=== PATIENT | male | born 1995 | race Caucasian/White ===

== ENCOUNTER 2022-04-18 20:32 | Inpatient (IN) ==
[2022-04-18 21:43] LABS: Basophils # (auto) 0.02 K/uL (0-0.2); Basophils % (auto) 0.3 %; Eosinophils % (auto) 1.4 %; Hematocrit (blood only) 39.8 % (40.1-51.0); Hemoglobin 14.5 g/dl (14.0-18.0); Immature Granulocytes # (auto) 0.02 K/uL (0.00-0.02); Immature Granulocytes % (auto) 0.3 %; Lymphocytes # (auto) 1.33 K/uL (1.2-3.4); Lymphocytes % (auto) 19.3 %; Mean Corpuscular Hemoglobin 30.8 pg (25.0-34.0); Mean Corpuscular Hgb Conc 36.4 g/dL (32.0-36.0); Mean Corpuscular Volume 84.5 fL (80.0-100.0); Mean Platelet Volume 9.6 fL (9.4-12.4); Monocytes # (auto) 0.71 K/uL (0.24-0.82); Monocytes % (auto) 10.3 %; Neutrophils # (auto) 4.72 K/uL (1.4-6.5); Neutrophils % (auto) 68.4 %; Platelet Count 408 K/uL (130-400); RDW Coefficient of Variation 11.9 % (11.5-14.5); RDW Standard Deviation 35.9 fL (36.4-46.3); Red Blood Count 4.71 M/uL (4.63-6.08)
[2022-04-18 21:55] LABS: Acetaminophen < 3 ug/ml (10-30); Salicylate < 3.0 mg/dl (3.0-30)
[2022-04-18 21:58] LABS: Alanine Aminotransferase 78 U/L (7-52); Albumin Globulin Ratio 1.7 (0.9-2); Albumin Level 4.7 gm/dl (3.4-5.0); Alkaline Phosphatase 74 U/L (34-104); Anion Gap 10 (3-11); Aspartate Aminotransferase 42 U/L (13-39); BUN Creatinine Ratio 8.2 (10-20); Bilirubin,Total 1.1 mg/dl (0.2-1.0); Blood Urea Nitrogen 7 mg/dl (6-23); Calcium 9.5 mg/dl (8.5-10.1); Carbon Dioxide 26 mmol/L (21-32); Chloride 100 mmol/L (98-107); Est GFR (African American) 139.4 ml/min; Est GFR (Non-African American) 120.3 ml/min; Globulin 2.7 gm/dl (2.5-4.0); Glucose 95 mg/dl (70-99(Fasting)); Potassium 3.2 mmol/L (3.5-5.1); Sodium 136 mmol/L (136-145); Total Protein 7.4 gm/dl (6.0-8.3)
[2022-04-18 22:27] LABS: Appearance Urine Clear (Clear); Bilirubin Urine Negative (Negative); Blood Urine Negative (Negative); Color Urine Yellow; Glucose Urine UA Negative (Negative); Ketones Urine Negative (Negative); Leukocyte Esterase Urine Negative (Negative); Nitrite Urine Negative (Negative); Protein Urine Negative (Negative); Specific Gravity Urine 1.003 (1.000-1.030); Urobilinogen Urine Negative (Negative)
--- NOTE | 2022-04-18 22:44 | Emergency Department Note ---
Impression & Plan History of suicidal tendencies The case will be signed out to Dr. Nicholas ED Provider Note NAME: TIFFANIE QURESHI AGE: 26 SEX: M ARRIVES VIA: Walk-In INFORMANT: Patient ED PROVIDER(S): Peace Navarro DO CHIEF COMPLAINT: Depression PLAN: Disposition: The case will be signed out to Dr. Nicholas Condition: Fair MEDICAL DECISION MAKING: This is a 26-year-old male patient who presents to the emergency department with worsening depression. The patient asked police to shoot him with a gun as he was feeling suicidal. The patient was medically cleared while here in the emergency department. He was evaluated by the ED psychiatric behavioral health case manager as he was here on a 302. The patient is willing to admit himself voluntarily. A bed search will begin Triage Nursing notes reviewed and agree with them. Vital Signs: reviewed and unremarkable Differential diagnosis: Mood disorder, thought disorder, suicidal ideation Diagnostics interpreted by me: Laboratory studies: See below HPI: 26/M arrives for evaluation of suicidal ideation. The patient explains that he has become increasingly depressed over the past 2 weeks because of some family issues. He states that his sister just does not care. He describes having a falling out with her. He believes that his mother is the one who called police tonight. When police arrived, he asked them to shoot him. The police petitioned a 302. ROS: See above HPI for pertinent positives & negatives. A total of 10 systems reviewed and were otherwise negative. PAST MEDICAL HISTORY:Depression-the patient is not taking any medications. PAST SURGICAL HISTORY:See Below FAMILY HISTORY:See Below SOCIAL HISTORY:The patient lives with his family; he works at [employer]; he does smoke marijuana HOME MEDICATIONS:None ALLERGIES:None VITALS:See Below PHYSICAL EXAMINATION: HEENT: Head - normocephalic and atraumatic . Pupils are equal, round, and reactive to light. Extraocular eye muscles are intact, and sclera are anicteric. Nose - moist nasal mucosa without discharge. Mouth - moist buccal mucosa. Oropharynx is nonerythematous and there is no tonsillar exudate or edema noted. Neck: Supple; no cervical lymphadenopathy Heart: Regular rate and rhythm. There is a normal S1 and S2 with no murmurs, clicks, or gallops appreciated. Lungs: Clear to auscultation bilaterally with no wheezes, rales, or rhonchi. Abdomen: Soft, completely nontender, nondistended, with good bowel sounds. There are no palpable pulsatile masses or hepatosplenomegaly. There is no guarding, rigidity, or rebound noted. Extremities: No evidence of cyanosis, clubbing, or edema. There are easily palpable peripheral pulses. Skin: warm and dry with good turgor and no rashes. Psych: Patient has a flat affect. He does make good eye contact. He does admit to suicidal tendencies but no specific plan. He has no previous attempts. ED COURSE: Times/Reassessments: 2100: Patient was evaluated in room A8. A complete history and physical was performed. Laboratory studies were drawn as above. The patient was felt to be medically cleared. He was evaluated by the ED psychiatric behavioral health case manager. The case will be signed out to Dr. Nicholas as the bed search is underway for a voluntary admission Peace Navarro DO Past Med/Surg History Social History Smoking Status: Current every day smoker (chewing tobacco) Tobacco Type: Cigarettes Preferred Language: Mauritanian Communication Ability: Effective Rotary [employer]ill [employer] Operator Required: No Beliefs That Will Affect Care: None Feels Safe at Home: Yes Assistive Devices: None Allergies Allergies Allergy/AdvReac Type Severity Reaction Status Date / Time No Known Allergies Allergy Verified 04/19/22 10:24 Home Meds Home Medications Medication Instructions Recorded Confirmed benztropine 1 mg tablet 1 mg PO DAILY 04/18/22 04/19/22 haloperidol decanoate 100 mg/mL 100 mg IM MONTHLY 04/18/22 04/18/22 intramuscular solution trazodone 100 mg tablet 100 mg PO HS 04/18/22 04/18/22 Results & Data (ED) Vital Signs Vital Signs - 24 hr 04/18/22 20:32 Temperature 36.6 C Temperature Source Oral Pulse Rate 72 Respiratory Rate 18 Respiratory Effort / Characteristics Non-Labored Respiratory Depth Normal Blood Pressure 126/71 Blood Pressure Mean 89 Blood Pressure Position Lying Pulse Oximetry 99 Oxygen Delivery Method Room Air Sepsis Recent Fever Within 48 Hours No Sepsis New/Unexplained Change in Mental Status No Sepsis Action Taken by Nursing No Action Required Laboratory Data Result diagrams: 04/18/22 20:46 04/18/22 20:46 Lab Results 04/18/22 04/18/22 04/18/22 Range/Units 20:06 20:06 20:46 WBC 6.90 (4.8-10.8) K/ul RBC 4.71 (4.63-6.08) M/uL Hgb 14.5 (14.0-18.0) g/dl Hct 39.8 L (40.1-51.0) % MCV 84.5 (80.0-100.0) fL MCH 30.8 (25.0-34.0) pg MCHC 36.4 H (32.0-36.0) g/dL RDW Std Deviation 35.9 L (36.4-46.3) fL RDW Coeff of Lyle 11.9 (11.5-14.5) % Plt Count 408 H (130-400) K/uL MPV 9.6 (9.4-12.4) fL Immature Gran % (Auto) 0.3 % Neut % (Auto) 68.4 % Lymph % (Auto) 19.3 % Bonner % (Auto) 10.3 % Eos % (Auto) 1.4 % Baso % (Auto) 0.3 % Neut # (Auto) 4.72 (1.4-6.5) K/uL Lymph # (Auto) 1.33 (1.2-3.4) K/uL Bonner # (Auto) 0.71 (0.24-0.82) K/uL Eos # (Auto) 0.10 (0-0.50) K/uL Baso # (Auto) 0.02 (0-0.2) K/uL Immature Gran # (Auto) 0.02 (0.00-0.02) K/uL Sodium (136-145) mmol/L Potassium (3.5-5.1) mmol/L Chloride (98-107) mmol/L Carbon Dioxide (21-32) mmol/L Anion Gap (3-11) BUN (6-23) mg/dl Creatinine (0.6-1.4) mg/dl Est Cr Clr Drug Dosing Est GFR ( Amer) ml/min Est GFR (Non-Af Amer) ml/min BUN/Creatinine Ratio (10-20) Glucose (70-99(Fasting)) mg/dl Calcium (8.5-10.1) mg/dl Total Bilirubin (0.2-1.0) mg/dl AST (13-39) U/L ALT (7-52) U/L Alkaline Phosphatase (34-104) U/L Total Protein (6.0-8.3) gm/dl Albumin (3.4-5.0) gm/dl Globulin (2.5-4.0) gm/dl Albumin/Globulin Ratio (0.9-2) TSH (0.300-4.500) uIu/ml Urine Color Yellow Urine Appearance Clear (Clear) Urine pH 7.0 (4.5-7.5) Ur Specific Gentry 1.003 (1.000-1.030) Urine Protein Negative (Negative) Urine Glucose (UA) Negative (Negative) Urine Ketones Negative (Negative) Urine Blood Negative (Negative) Urine Nitrite Negative (Negative) Urine Bilirubin Negative (Negative) Urine Urobilinogen Negative (Negative) Ur Leukocyte Esterase Negative (Negative) Salicylates (3.0-30) mg/dl Urine Opiates Screen Neg (Neg) Ur Methadone, Qual Neg (Neg) Acetaminophen (10-30) ug/ml Urine Barbiturates Neg (Neg) Ur Phencyclidine (PCP) Neg (Neg) U Amphetamin/Meth Scrn Neg (Neg) MDMA (Ecstasy) Screen Neg (Neg) U Benzodiazepines Scrn Neg (Neg) Ur Cocaine Metabolite Neg (Neg) U Marijuana (THC) Screen Pos H (Neg) Ethyl Alcohol mg/dL (<10.0) mg/dl SARS-CoV-2, RNA, NAAT (NEGATIVE) 04/18/22 04/18/22 04/18/22 Range/Units 20:46 20:46 20:46 WBC (4.8-10.8) K/ul RBC (4.63-6.08) M/uL Hgb (14.0-18.0) g/dl Hct (40.1-51.0) % MCV (80.0-100.0) fL MCH (25.0-34.0) pg MCHC (32.0-36.0) g/dL RDW Std Deviation (36.4-46.3) fL RDW Coeff of Lyle (11.5-14.5) % Plt Count (130-400) K/uL MPV (9.4-12.4) fL Immature Gran % (Auto) % Neut % (Auto) % Lymph % (Auto) % Bonner % (Auto) % Eos % (Auto) % Baso % (Auto) % Neut # (Auto) (1.4-6.5) K/uL Lymph # (Auto) (1.2-3.4) K/uL Bonner # (Auto) (0.24-0.82) K/uL Eos # (Auto) (0-0.50) K/uL Baso # (Auto) (0-0.2) K/uL Immature Gran # (Auto) (0.00-0.02) K/uL Sodium 136 (136-145) mmol/L Potassium 3.2 L (3.5-5.1) mmol/L Chloride 100 (98-107) mmol/L Carbon Dioxide 26 (21-32) mmol/L Anion Gap 10 (3-11) BUN 7 (6-23) mg/dl Creatinine 0.85 (0.6-1.4) mg/dl Est Cr Clr Drug Dosing Not Reportable Est GFR ( Amer) 139.4 ml/min Est GFR (Non-Af Amer) 120.3 ml/min BUN/Creatinine Ratio 8.2 L (10-20) Glucose 95 (70-99(Fasting)) mg/dl Calcium 9.5 (8.5-10.1) mg/dl Total Bilirubin 1.1 H (0.2-1.0) mg/dl AST 42 H (13-39) U/L ALT 78 H (7-52) U/L Alkaline Phosphatase 74 (34-104) U/L Total Protein 7.4 (6.0-8.3) gm/dl Albumin 4.7 (3.4-5.0) gm/dl Globulin 2.7 (2.5-4.0) gm/dl Albumin/Globulin Ratio 1.7 (0.9-2) TSH 1.222 (0.300-4.500) uIu/ml Urine Color Urine Appearance (Clear) Urine pH (4.5-7.5) Ur Specific Gentry (1.000-1.030) Urine Protein (Negative) Urine Glucose (UA) (Negative) Urine Ketones (Negative) Urine Blood (Negative) Urine Nitrite (Negative) Urine Bilirubin (Negative) Urine Urobilinogen (Negative) Ur Leukocyte Esterase (Negative) Salicylates < 3.0 L (3.0-30) mg/dl Urine Opiates Screen (Neg) Ur Methadone, Qual (Neg) Acetaminophen < 3 L (10-30) ug/ml Urine Barbiturates (Neg) Ur Phencyclidine (PCP) (Neg) U Amphetamin/Meth Scrn (Neg) MDMA (Ecstasy) Screen (Neg) U Benzodiazepines Scrn (Neg) Ur Cocaine Metabolite (Neg) U Marijuana (THC) Screen (Neg) Ethyl Alcohol mg/dL (<10.0) mg/dl SARS-CoV-2, RNA, NAAT (NEGATIVE) 04/18/22 04/18/22 Range/Units 20:46 20:47 WBC (4.8-10.8) K/ul RBC (4.63-6.08) M/uL Hgb (14.0-18.0) g/dl Hct (40.1-51.0) % MCV (80.0-100.0) fL MCH (25.0-34.0) pg MCHC (32.0-36.0) g/dL RDW Std Deviation (36.4-46.3) fL RDW Coeff of Lyle (11.5-14.5) % Plt Count (130-400) K/uL MPV (9.4-12.4) fL Immature Gran % (Auto) % Neut % (Auto) % Lymph % (Auto) % Bonner % (Auto) % Eos % (Auto) % Baso % (Auto) % Neut # (Auto) (1.4-6.5) K/uL Lymph # (Auto) (1.2-3.4) K/uL Bonner # (Auto) (0.24-0.82) K/uL Eos # (Auto) (0-0.50) K/uL Baso # (Auto) (0-0.2) K/uL Immature Gran # (Auto) (0.00-0.02) K/uL Sodium (136-145) mmol/L Potassium (3.5-5.1) mmol/L Chloride (98-107) mmol/L Carbon Dioxide (21-32) mmol/L Anion Gap (3-11) BUN (6-23) mg/dl Creatinine (0.6-1.4) mg/dl Est Cr Clr Drug Dosing Est GFR ( Amer) ml/min Est GFR (Non-Af Amer) ml/min BUN/Creatinine Ratio (10-20) Glucose (70-99(Fasting)) mg/dl Calcium (8.5-10.1) mg/dl Total Bilirubin (0.2-1.0) mg/dl AST (13-39) U/L ALT (7-52) U/L Alkaline Phosphatase (34-104) U/L Total Protein (6.0-8.3) gm/dl Albumin (3.4-5.0) gm/dl Globulin (2.5-4.0) gm/dl Albumin/Globulin Ratio (0.9-2) TSH (0.300-4.500) uIu/ml Urine Color Urine Appearance (Clear) Urine pH (4.5-7.5) Ur Specific Gentry (1.000-1.030) Urine Protein (Negative) Urine Glucose (UA) (Negative) Urine Ketones (Negative) Urine Blood (Negative) Urine Nitrite (Negative) Urine Bilirubin (Negative) Urine Urobilinogen (Negative) Ur Leukocyte Esterase (Negative) Salicylates (3.0-30) mg/dl Urine Opiates Screen (Neg) Ur Methadone, Qual (Neg) Acetaminophen (10-30) ug/ml Urine Barbiturates (Neg) Ur Phencyclidine (PCP) (Neg) U Amphetamin/Meth Scrn (Neg) MDMA (Ecstasy) Screen (Neg) U Benzodiazepines Scrn (Neg) Ur Cocaine Metabolite (Neg) U Marijuana (THC) Screen (Neg) Ethyl Alcohol mg/dL < 10.0 (<10.0) mg/dl SARS-CoV-2, RNA, NAAT NEGATIVE (NEGATIVE) Administered Medications Olanzapine (Olanzapine 5 Mg Tablet) 5 mg PO HS PRN PRN Reason: Insomnia Stop: 05/19/22 20:59 Last Admin: 04/19/22 02:12 Dose: 5 mg Documented By: AD Discontinued Medications Trazodone HCl (Trazodone Hcl 50 Mg Tab) 100 mg PO NOW ONE Stop: 04/18/22 23:25 Last Admin: 04/18/22 23:37 Dose: 100 mg Documented By: GEORGE Discharge Plan Visit Data Chief Complaint: Mental Health Evaluation Stated Complaint: MENTAL HEALTH EVAL ED Provider: Brendon Nicholas Discharge Problem: History of suicidal tendencies Patient Disposition: Admitted As Inpatient Discharge Instructions Interventions: ED Discharge Assessment Last Done: 04/19/22 00:52
[2022-04-18 23:07] LABS: Amphetamines+Metham, Urine Neg (Neg); Barbiturates, Urine Neg (Neg); Benzodiazepine, Urine Neg (Neg); Cocaine, Urine Neg (Neg); MDMA (Ecstacy), Urine Neg (Neg); Methadone, Urine Neg (Neg); Opiate, Urine Neg (Neg); Phencyclidine, Urine Neg (Neg)
[2022-04-18] MEDS ORDERED: traZODone HCL 50 MG TAB PO ONE (23:24)
[2022-04-19] MEDS ORDERED: SODIUM CHLORIDE 0.65% NA SOLN 45 ML (OCEAN) PRN (00:25)
[2022-04-19] MEDS ORDERED: hydrOXYzine HCl 25 MG TAB PO PRN ×2 (00:25)
[2022-04-19] MEDS ORDERED: MAGNESIUM HYDROXIDE SUSP 30 ML UDC PO PRN (00:25)
[2022-04-19] MEDS ORDERED: ALUMINUM/MAGNESIUM SUSP 30 ML UDC PO PRN (00:25)
[2022-04-19] MEDS ORDERED: BISMUTH SUBSALICYLATE LIQD 236 ML PO PRN (00:25)
[2022-04-19] MEDS ORDERED: OLANZapine 5 MG TABLET PO PRN ×2 (00:32→10:44)
--- NOTE | 2022-04-19 01:58 | Emergency Department Note ---
ED Visit Note Patient was signed out to me at change of shift by Dr. Navarro, while on shift patient was admitted voluntarily to 3 S. for inpatient psychiatric care. 302 therefore was not upheld as the patient was agreeable for 201 admission. Patient was admitted in stable condition. .
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
[2022-04-19] MEDS: NICOTINE 21 MG/24 HR TDSY TD SCH (10:44)
[2022-04-19] MEDS: NICOTINE POLACRILEX 2 MG GUM MT PRN ×4 (10:58→20:02)
[2022-04-19] MEDS: BENZTROPINE MESYLATE 1 MG TAB PO SCH (12:52)
[2022-04-19] MEDS: ACETAMINOPHEN 325 MG TAB PO PRN (16:03)
[2022-04-19] MEDS: traZODone HCL 100 MG TAB PO SCH (21:13)
[2022-04-20] MEDS: BENZTROPINE MESYLATE 1 MG TAB PO SCH (08:31)
[2022-04-20] MEDS: NICOTINE 21 MG/24 HR TDSY TD SCH (08:32)
[2022-04-20] MEDS: NICOTINE POLACRILEX 2 MG GUM MT PRN ×5 (09:01→17:36)
--- NOTE | 2022-04-20 16:41 | Psychiatric Progress Note ---
Date of Service April 20, 2022 Impression / Recommendations Impression The patient is a 26 year old with a history of schizophrenia who was admitted for worsening depression, irritability with SI. Diagnostically consistent with MDD with marked irritability, given history of schizophrenia could be OCD component to chronic SI/intrusive thoughts but difficult to fully assess given his difficulty engaging with interview, significant externalizing and does sound like challenging home environment. His attempts to taper cannabis use may also be contributing to irritability. Unclear if any specific learning disabilities but presentation more consistent with ODD/depression with irritability at this point. The patient is deemed unstable and requires psychiatric hospitalization for diagnostic clarification, safety and stabilization, medication management and development of further coping skills. MNPR due to marked irritability and anger, unable to tolerate extended interactions with peers 04/20/22: Some reduction in irritability today, still with depression and anxiety. Reviewed [facility] records-no noted prior SSRI trials. Discussed medication treatment options in detail for mood including SSRIs. Discussed risks, benefits and alternatives. Patient would like to start and consented to sertraline for MDD. Reviewed side effects including but not limited to: GI, STUART, sexual side effects, and counseled on black box warning of potential for emergence of or increased SI and need to let staff know should this occur or should they feel unsafe. Also discussed importance of seeking emergency care following discharge if this side effect occurs in the future. (1) MDD (major depressive disorder), recurrent episode, severe: (2) Schizophrenia: (3) Suicidal ideations: Plan 04/20/22: Start sertraline 25mg qd. 04/19/22: The patient was admitted to the [facility] ([facility] mental health unit) on q15 min checks (behavioral with suicide precautions) for safety. The patient will participate in group, recreational, and milieu therapies and will be offered additional individual and family sessions as clinically appropriate. -Get records from [facility] to confirm if any prior antidepressant trials -Continue Cogentin and trazodone, will confirm when next dose is due for Haldol VINES -He agrees to referral for case management Inventory Assets Strengths: lives with family, willing to consider additional outpatient resources, employed Needs: safety and stabilization, medication adjustment, additional coping skills, increased outpatient services Suicide Risk Level Suicide Risk Level Comments: High-Moderate due to severe depression with SI with plan prior to admission but feels safe in the hospital, able to safety contract and agrees to let nursing/staff know should they develop plan, intent or feel unable to remain safe. Risk Factors Assessment Male: Yes : Yes Do You Have Access To A Gun?: No Mental Health Diagnoses: Yes Previous Attempt: No Family History of Suicide: No Previous Psychiatric Hospitalization: Yes Hopelessness: Yes Protective Factors Assessment Employed: Yes ([employer]) Interval History Identifying Information TIFFANIE QURESHI is a 26-year-old M who currently lives in [place] with his mother and her boyfriend, has a history of schizophrenia, and was admitted on 04/19/22 00:25 on a 201 voluntary commitment for worsening depression, agitation and SI with plan of by police. Chief Complaint "I'm ok but my mom won't milk pickup truck driver her phone to talk to me". Review of Systems Sleep Information Total Hours of Sleep: 5 Meal Information Percent Meal Consumed - Breakfast: 100 Percent Meal Consumed - Lunch: 100 Percent Meal Consumed - Dinner: 75 Nutrition Comment: left patient sleep due to late admission Subjective Subjective Patient was seen & assessed and interval progress reviewed with treatment team nursing and social work. Slightly less irritable today. States his mood is a "little calmer". He denies SI so far today. He's finding the groups helpful. Reviewed that I recieved his [facility] records and could find no history of a prior SSRI trial. He remains focused on his mom and themes of frustration with his family. Called his job to tell them he's here. Physical Exam Psychiatric Orientation: alert and oriented x 3 Apperance: appropriately dressed and appropriately groomed Eye Contact: good eye contact Motor Behavior: no abnormal motor movements Speech: normal rate/rhythm/volume of speech Affect: + depressed affect and + anxious affect Mood: + depressed mood and + anxious mood Thought Process: goal directed thought process and + concrete thought process Thought Content: reality based without delusions Suicidal Thoughts: denies suicidal plan and denies suicidal intent; + reports suicidal thoughts (chronic intermittent thoughts but denies any so far today) Homicidal Thoughts: denies homicidal thoughts Hallucinations: no auditory hallucinations and no visual hallucinations Cognition: recent memory grossly intact, remote memory grossly intact, attention grossly intact and language grossly intact Estimated Intelligence: consistent with education level Insight: + limited insight Judgement: + limited judgement Vital Signs (Past 24 Hours) Last Vital Signs Temp 36.4 C L 04/20/22 06:36 Pulse 75 04/20/22 06:38 Resp 16 04/20/22 06:36 BP 145/86 H 04/20/22 06:38 Pulse Ox 96 04/19/22 01:17 O2 Del Method 04/19/22 01:17 Results & Data ([facility]) Current Inpatient Medications Current Inpatient Medications: Current Inpatient Medications Acetaminophen (Acetaminophen 325 Mg Tab) 650 mg PO Q4H PRN PRN Reason: Headache or Minor Fever Stop: 05/19/22 00:24 Last Admin: 04/19/22 16:03 Dose: 650 mg Al Hydrox/Mg Hydrox/Simethicone (Aluminum/Magnesium Susp 30 Ml Udc) 30 ml PO Q4H PRN PRN Reason: GI Upset Stop: 05/19/22 00:24 Benztropine Mesylate (Benztropine Mesylate 1 Mg Tab) 1 mg PO DAILY [facility] Stop: 05/19/22 10:44 Last Admin: 04/20/22 08:31 Dose: 1 mg Bismuth Subsalicylate (Bismuth Subsalicylate Liqd 236 Ml) 15 ml PO PRN PRN PRN Reason: Loose Stool Stop: 05/19/22 00:24 Hydroxyzine HCl (Hydroxyzine Hcl 25 Mg Tab) 50 mg PO HSZ PRN PRN Reason: Insomnia Stop: 05/19/22 00:24 Hydroxyzine HCl (Hydroxyzine Hcl 25 Mg Tab) 25 mg PO Q4H PRN PRN Reason: Anxiety Stop: 05/19/22 00:24 Last Admin: 04/19/22 13:40 Dose: 25 mg Magnesium Hydroxide (Magnesium Hydroxide Susp 30 Ml Udc) 30 ml PO DAILY PRN PRN Reason: Constipation Stop: 05/19/22 00:24 Miscellaneous (Remove Nicoderm Patch) 1 each N/A DAILY@0859 [facility] Stop: 05/19/22 08:58 Last Admin: 04/20/22 08:32 Dose: Not Given Nicotine (Nicotine 21 Mg/24 Hr Tdsy) 21 mg TD QAM [facility] Stop: 05/19/22 08:59 Last Admin: 04/20/22 08:32 Dose: Not Given Nicotine Polacrilex (Nicotine Polacrilex 2 Mg Gum) 1 piece MT PRN PRN PRN Reason: Nicotine Withdrawal Stop: 05/19/22 00:24 Last Admin: 04/20/22 15:36 Dose: 1 piece Olanzapine (Olanzapine 5 Mg Tablet) 5 mg PO BID PRN PRN Reason: Agitation Stop: 05/19/22 00:31 Sodium Chloride (Sodium Chloride 0.65% Na Soln 45 Ml ([place])) 1 - 2 sprays NA PRN PRN PRN Reason: Nasal Dryness/Congestion Stop: 05/19/22 00:24 Trazodone HCl (Trazodone Hcl 100 Mg Tab) 100 mg PO HS [facility]AC[facility] Stop: 05/19/22 21:59 Last Admin: 04/19/22 21:13 Dose: 100 mg Mental Health & Subst Abuse Tx Psychiatrist Name of Psychiatrist: Calvin Lambert Psychiatrist's Date of Appointment with Psychiatrist: 05/03/22 Time of Appointment with Psychiatrist: 10:40am Psychiatric Appointment Comment: [id number], [place] [id number] Therapist Name of Therapist: Christiana Alexis Therapist's Date of Therapist Appointment: 04/28/22 Time of Therapist Appointment: 3:30 PM Therapy Appointment Comment: This is a televideo appointment. Material Handling Crew Supervisor Name of Material Handling Crew Supervisor: autumn Post Discharge Appointments Primary Care Physician Name Of Family Doctor: unknown
[2022-04-20] MEDS: ACETAMINOPHEN 325 MG TAB PO PRN (17:36)
[2022-04-20] MEDS: traZODone HCL 100 MG TAB PO SCH (21:18)
[2022-04-21 00:18] LABS: Marijuana Quant, GCMS Urine 88 ng/mL (<5)
[2022-04-21] MEDS: NICOTINE 21 MG/24 HR TDSY TD SCH (05:54)
[2022-04-21] MEDS: BENZTROPINE MESYLATE 1 MG TAB PO SCH (08:13)
[2022-04-21] MEDS: SERTRALINE HCL 50 MG TABLET PO SCH (08:13)
--- NOTE | 2022-04-21 08:57 | Psychiatric Progress Note ---
Date of Service April 21, 2022 Impression / Recommendations Impression The patient is a 26 year old with a history of schizophrenia who was admitted for worsening depression, irritability with SI. Diagnostically consistent with MDD with marked irritability, given history of schizophrenia could be OCD component to chronic SI/intrusive thoughts but difficult to fully assess given his difficulty engaging with interview, significant externalizing and does sound like challenging home environment. His attempts to taper cannabis use may also be contributing to irritability. Unclear if any specific learning disabilities but presentation more consistent with ODD/depression with irritability at this point. The patient is deemed unstable and requires psychiatric hospitalization for diagnostic clarification, safety and stabilization, medication management and development of further coping skills. MNPR due to marked irritability and anger, unable to tolerate extended interactions with peers 04/21/22: Depression and anxiety with periods of heightened irritability when communicating with family. Tolerating sertraline. Motivational interviewing regarding tobacco and cannabis use-some increased insight about this and role it plays in conflicts. (1) MDD (major depressive disorder), recurrent episode, severe: (2) Schizophrenia: (3) Suicidal ideations: Plan 04/21/22: Continue with medications and tx plan. Needs family meeting. 04/20/22: Start sertraline 25mg qd. 04/19/22: The patient was admitted to the [facility] ([facility] mental health unit) on q15 min checks (behavioral with suicide precautions) for safety. The patient will participate in group, recreational, and milieu therapies and will be offered additional individual and family sessions as clinically appropriate. -Get records from [facility] to confirm if any prior antidepressant trials -Continue Cogentin and trazodone, will confirm when next dose is due for Haldol VINES -He agrees to referral for case management Inventory Assets Strengths: lives with family, willing to consider additional outpatient resources, employed Needs: safety and stabilization, medication adjustment, additional coping skills, increased outpatient services Suicide Risk Level Suicide Risk Level: Moderate (q15 min suicide checks) Suicide Risk Level Comments: Moderate due to severe depression with SI with plan prior to admission but denies SI today, feels safe in the hospital, able to safety contract and agrees to let nursing/staff know should they develop plan, intent or feel unable to remain safe. Risk Factors Assessment Male: Yes : Yes Do You Have Access To A Gun?: No Mental Health Diagnoses: Yes Previous Attempt: No Family History of Suicide: No Previous Psychiatric Hospitalization: Yes Hopelessness: Yes Protective Factors Assessment Employed: Yes ([employer]) Interval History Identifying Information TIFFANIE QURESHI is a 26-year-old M who currently lives in [place] with his mother and her boyfriend, has a history of schizophrenia, and was admitted on 04/19/22 00:25 on a 201 voluntary commitment for worsening depression, agitation and SI with plan of by police. Chief Complaint "I'm ok". Review of Systems Sleep Information Total Hours of Sleep: 5 Meal Information Percent Meal Consumed - Breakfast: 100 Percent Meal Consumed - Lunch: 100 Percent Meal Consumed - Dinner: 100 Nutrition Comment: left patient sleep due to late admission Subjective Subjective Patient was seen & assessed and interval progress reviewed with treatment team nursing and social work. Up early and focused on coping skills. Got very angry on the phone with his mother shouting and cursing and became very angry requiring redirection from nursing. Today more insight into role of his substance in contributing to arguments at home with his family. States more hopefulness today. Denies SI. No side effects from sertraline so far. Physical Exam Psychiatric Orientation: alert and oriented x 3 Apperance: appropriately dressed and appropriately groomed Eye Contact: good eye contact Motor Behavior: no abnormal motor movements Speech: normal rate/rhythm/volume of speech Affect: + depressed affect Mood: + depressed mood Thought Process: goal directed thought process and + concrete thought process Thought Content: reality based without delusions Suicidal Thoughts: denies suicidal thoughts (chronic intermittent thoughts but denies any so far today) Homicidal Thoughts: denies homicidal thoughts Hallucinations: no auditory hallucinations and no visual hallucinations Cognition: recent memory grossly intact, remote memory grossly intact, attention grossly intact and language grossly intact Estimated Intelligence: consistent with education level Insight: + fair insight Judgement: + limited judgement Vital Signs (Past 24 Hours) Last Vital Signs Temp 35.6 C L 04/21/22 06:00 Pulse 62 04/21/22 06:05 Resp 16 04/21/22 06:00 BP 139/83 04/21/22 06:05 Pulse Ox 96 04/19/22 01:17 O2 Del Method 04/19/22 01:17 Results & Data ([facility]) Laboratory Results Laboratory Results - last 24 hr 04/18/22 20:06 U Marijuana THC Carboxy 88 H Drug Screen Comment SEE NOTE Current Inpatient Medications Current Inpatient Medications: Current Inpatient Medications Acetaminophen (Acetaminophen 325 Mg Tab) 650 mg PO Q4H PRN PRN Reason: Headache or Minor Fever Stop: 05/19/22 00:24 Last Admin: 04/20/22 17:36 Dose: 650 mg Al Hydrox/Mg Hydrox/Simethicone (Aluminum/Magnesium Susp 30 Ml Udc) 30 ml PO Q4H PRN PRN Reason: GI Upset Stop: 05/19/22 00:24 Benztropine Mesylate (Benztropine Mesylate 1 Mg Tab) 1 mg PO DAILY [facility] Stop: 05/19/22 10:44 Last Admin: 04/21/22 08:13 Dose: 1 mg Bismuth Subsalicylate (Bismuth Subsalicylate Liqd 236 Ml) 15 ml PO PRN PRN PRN Reason: Loose Stool Stop: 05/19/22 00:24 Hydroxyzine HCl (Hydroxyzine Hcl 25 Mg Tab) 50 mg PO HSZ PRN PRN Reason: Insomnia Stop: 05/19/22 00:24 Hydroxyzine HCl (Hydroxyzine Hcl 25 Mg Tab) 25 mg PO Q4H PRN PRN Reason: Anxiety Stop: 05/19/22 00:24 Last Admin: 04/19/22 13:40 Dose: 25 mg Magnesium Hydroxide (Magnesium Hydroxide Susp 30 Ml Udc) 30 ml PO DAILY PRN PRN Reason: Constipation Stop: 05/19/22 00:24 Miscellaneous (Remove Nicoderm Patch) 1 each N/A DAILY@0859 [facility] Stop: 05/19/22 08:58 Last Admin: 04/21/22 05:45 Dose: Not Given Nicotine (Nicotine 21 Mg/24 Hr Tdsy) 21 mg TD QAM [facility] Stop: 05/19/22 08:59 Last Admin: 04/21/22 05:54 Dose: 21 mg Nicotine Polacrilex (Nicotine Polacrilex 2 Mg Gum) 1 piece MT PRN PRN PRN Reason: Nicotine Withdrawal Stop: 05/19/22 00:24 Last Admin: 04/20/22 17:36 Dose: 1 piece Olanzapine (Olanzapine 5 Mg Tablet) 5 mg PO BID PRN PRN Reason: Agitation Stop: 05/19/22 00:31 Sertraline HCl (Sertraline Hcl 50 Mg Tablet) 25 mg PO QAM [facility] Stop: 05/21/22 08:59 Last Admin: 04/21/22 08:13 Dose: 25 mg Sodium Chloride (Sodium Chloride 0.65% Na Soln 45 Ml ([place])) 1 - 2 sprays NA PRN PRN PRN Reason: Nasal Dryness/Congestion Stop: 05/19/22 00:24 Trazodone HCl (Trazodone Hcl 100 Mg Tab) 100 mg PO HS [facility] Stop: 05/19/22 21:59 Last Admin: 04/20/22 21:18 Dose: 100 mg Mental Health & Subst Abuse Tx Psychiatrist Name of Psychiatrist: Calvin Lambert Psychiatrist's Date of Appointment with Psychiatrist: 05/03/22 Time of Appointment with Psychiatrist: 10:40am Psychiatric Appointment Comment: [id number], [place] [id number] Therapist Name of Therapist: Christiana Alexis Therapist's Date of Therapist Appointment: 04/28/22 Time of Therapist Appointment: 3:30 PM Therapy Appointment Comment: This is a televideo appointment. [employer] Set Up Technician Name of [employer] Set Up Technician: autumn Post Discharge Appointments Primary Care Physician Name Of Family Doctor: unknown
[2022-04-21] MEDS: NICOTINE POLACRILEX 2 MG GUM MT PRN (17:43)
[2022-04-21] MEDS: traZODone HCL 100 MG TAB PO SCH (21:18)
[2022-04-22] MEDS: SERTRALINE HCL 50 MG TABLET PO SCH (07:24)
[2022-04-22] MEDS: BENZTROPINE MESYLATE 1 MG TAB PO SCH (07:24)
[2022-04-22] MEDS: NICOTINE 21 MG/24 HR TDSY TD SCH (07:25)
[2022-04-22] MEDS ORDERED: SERTRALINE HCL 50 MG TABLET PO ONE (12:15)
--- NOTE | 2022-04-22 12:32 | Psychiatric Progress Note ---
Date of Service April 22, 2022 Impression / Recommendations Impression The patient is a 26 year old with a history of schizophrenia who was admitted for worsening depression, irritability with SI. Diagnostically consistent with MDD with marked irritability, given history of schizophrenia could be OCD component to chronic SI/intrusive thoughts but difficult to fully assess given his difficulty engaging with interview, significant externalizing and does sound like challenging home environment. His attempts to taper cannabis use may also be contributing to irritability. Unclear if any specific learning disabilities but presentation more consistent with ODD/depression with irritability at this point. The patient is deemed unstable and requires psychiatric hospitalization for diagnostic clarification, safety and stabilization, medication management and development of further coping skills. MNPR due to periods of irritability and anger 04/22/22: Mood is improving, still with anxiety. Family meeting to be held today. Consents to increase in sertraline and continues to tolerate without any side effects. Ongoing motivational interviewing regarding tobacco and cannabis use he plans to avoid use after discharge. (1) MDD (major depressive disorder), recurrent episode, severe: (2) Schizophrenia: (3) Suicidal ideations: Plan 04/22/22: Increase sertraline to 50mg qd. 04/21/22: Continue with medications and tx plan. Needs family meeting. 04/20/22: Start sertraline 25mg qd. 04/19/22: The patient was [facility] to the [facility] on q15 min checks (behavioral with suicide precautions) for safety. The patient will participate in group, recreational, and milieu therapies and will be offered additional individual and family sessions as clinically appropriate. -Get records from [facility] to confirm if any prior antidepressant trials -Continue Cogentin and trazodone, will confirm when next dose is due for Haldol VINES -He agrees to referral for case management Inventory Assets Strengths: lives with family, willing to consider additional outpatient resources, employed Needs: safety and stabilization, medication adjustment, additional coping skills, increased outpatient services Suicide Risk Level Suicide Risk Level: Moderate (q15 min suicide checks) Suicide Risk Level Comments: Moderate due to severe depression with SI with plan prior to admission but denies SI today, feels safe in the hospital, able to safety contract and agrees to let nursing/staff know should they develop plan, intent or feel unable to remain safe. Risk Factors Assessment Male: Yes : Yes Do You Have Access To A Gun?: No Mental Health Diagnoses: Yes Previous Attempt: No Family History of Suicide: No Previous Psychiatric Hospitalization: Yes Hopelessness: Yes Protective Factors Assessment Employed: Yes ([employer]) Interval History Identifying Information TIFFANIE QURESHI is a 26-year-old M who currently lives in [place] with his mother and her boyfriend, has a history of schizophrenia, and was admitted on 04/19/22 00:25 on a 201 voluntary commitment for worsening depression, agitation and SI with plan of by police. Chief Complaint "I'm nervous about the family meeting, I hope it goes ok". Review of Systems Sleep Information Total Hours of Sleep: 6.75 Sleep Comments: Wakes so early. refills water numerous times, at least 5. Meal Information Percent Meal Consumed - Breakfast: 100 Percent Meal Consumed - Lunch: 90 Percent Meal Consumed - Dinner: 100 Nutrition Comment: left patient sleep due to late admission Subjective Subjective Patient was seen & assessed and interval progress reviewed with treatment team nursing and social work. Still with some anxiety and depression but he's finding coping skills helpful. Expresses gratitude for his experience in the hospital so far. Denies SI. Finding nicotine patch helpful, discussed Quit line and he plans to continue to avoid marijuana and chewing tobacco use after discharge. No side effects from sertraline. Physical Exam Psychiatric Orientation: alert and oriented x 3 Apperance: appropriately dressed and appropriately groomed Eye Contact: good eye contact Motor Behavior: no abnormal motor movements Speech: normal rate/rhythm/volume of speech Mood: + depressed mood and + anxious mood Thought Process: goal directed thought process Thought Content: reality based without delusions Suicidal Thoughts: denies suicidal thoughts Homicidal Thoughts: denies homicidal thoughts Hallucinations: no auditory hallucinations and no visual hallucinations Cognition: recent memory grossly intact, remote memory grossly intact, attention grossly intact and language grossly intact Estimated Intelligence: consistent with education level Insight: + fair insight Judgement: + fair judgement Vital Signs (Past 24 Hours) Last Vital Signs Temp 36.3 C L 04/22/22 06:55 Pulse 82 04/22/22 06:56 Resp 18 04/22/22 06:55 BP 141/98 H 04/22/22 06:56 Pulse Ox 96 04/19/22 01:17 O2 Del Method 04/19/22 01:17 Results & Data ([facility]) Current Inpatient Medications Current Inpatient Medications: Current Inpatient Medications Acetaminophen (Acetaminophen 325 Mg Tab) 650 mg PO Q4H PRN PRN Reason: Headache or Minor Fever Stop: 05/19/22 00:24 Last Admin: 04/20/22 17:36 Dose: 650 mg Al Hydrox/Mg Hydrox/Simethicone (Aluminum/Magnesium Susp 30 Ml Udc) 30 ml PO Q4H PRN PRN Reason: GI Upset Stop: 05/19/22 00:24 Benztropine Mesylate (Benztropine Mesylate 1 Mg Tab) 1 mg PO DAILY [facility] Stop: 05/19/22 10:44 Last Admin: 04/22/22 07:24 Dose: 1 mg Bismuth Subsalicylate (Bismuth Subsalicylate Liqd 236 Ml) 15 ml PO PRN PRN PRN Reason: Loose Stool Stop: 05/19/22 00:24 Hydroxyzine HCl (Hydroxyzine Hcl 25 Mg Tab) 50 mg PO HSZ PRN PRN Reason: Insomnia Stop: 05/19/22 00:24 Hydroxyzine HCl (Hydroxyzine Hcl 25 Mg Tab) 25 mg PO Q4H PRN PRN Reason: Anxiety Stop: 05/19/22 00:24 Last Admin: 04/19/22 13:40 Dose: 25 mg Magnesium Hydroxide (Magnesium Hydroxide Susp 30 Ml Udc) 30 ml PO DAILY PRN PRN Reason: Constipation Stop: 05/19/22 00:24 Miscellaneous (Remove Nicoderm Patch) 1 each N/A DAILY@0859 [facility] Stop: 05/19/22 08:58 Last Admin: 04/22/22 07:25 Dose: 1 each Nicotine (Nicotine 21 Mg/24 Hr Tdsy) 21 mg TD QAM [facility] Stop: 05/19/22 08:59 Last Admin: 04/22/22 07:25 Dose: 21 mg Nicotine Polacrilex (Nicotine Polacrilex 2 Mg Gum) 1 piece MT PRN PRN PRN Reason: Nicotine Withdrawal Stop: 05/19/22 00:24 Last Admin: 04/21/22 17:43 Dose: 1 piece Olanzapine (Olanzapine 5 Mg Tablet) 5 mg PO BID PRN PRN Reason: Agitation Stop: 05/19/22 00:31 Sertraline HCl (Sertraline Hcl 50 Mg Tablet) 50 mg PO QAM [facility] Stop: 05/23/22 08:59 Sertraline HCl (Sertraline Hcl 50 Mg Tablet) 25 mg PO NOW ONE Stop: 04/22/22 12:16 Sodium Chloride (Sodium Chloride 0.65% Na Soln 45 Ml (L[place]ium)) 1 - 2 sprays NA PRN PRN PRN Reason: Nasal Dryness/Congestion Stop: 05/19/22 00:24 Trazodone HCl (Trazodone Hcl 100 Mg Tab) 100 mg PO HS [facility] Stop: 05/19/22 21:59 Last Admin: 04/21/22 21:18 Dose: 100 mg Mental Health & Subst Abuse Tx Psychiatrist Name of Psychiatrist: Calvin Lambert Psychiatrist's Date of Appointment with Psychiatrist: 05/03/22 Time of Appointment with Psychiatrist: 10:40am Psychiatric Appointment Comment: [id number] [place] [id number] Therapist Name of Therapist: Christiana Alexis Therapist's Date of Therapist Appointment: 04/28/22 Time of Therapist Appointment: 3:30 PM Therapy Appointment Comment: This is a televideo appointment. Dental Office Assistant Name of Dental Office Assistant: [employer] Post Discharge Appointments Primary Care Physician Name Of Family Doctor: unknown
[2022-04-22] MEDS: ACETAMINOPHEN 325 MG TAB PO PRN (17:14)
[2022-04-22] MEDS: traZODone HCL 100 MG TAB PO SCH (20:51)
[2022-04-23] MEDS: BENZTROPINE MESYLATE 1 MG TAB PO SCH (08:15)
[2022-04-23] MEDS: NICOTINE 21 MG/24 HR TDSY TD SCH (08:18)
[2022-04-23] MEDS ORDERED: SERTRALINE HCL 50 MG TABLET PO SCH (09:00)
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
== END 2022-04-23 11:05 | disposition home or self-care (01) | DRG 885 ==
LOC: ED 20:32 → 3S 04-19 00:25
DX: F20.9 Schizophrenia, unspecified; F17.210 Nicotine dependence, cigarettes, uncomplicated; F33.2 Major depressive disorder, recurrent severe without psychotic features; F17.290 Nicotine dependence, other tobacco product, uncomplicated; Z63.8 Other specified problems related to primary support group; Z91.14 Patient's other noncompliance with medication regimen; Z79.899 Other long term (current) drug therapy; R45.851 Suicidal ideations